=== PATIENT | male | born 2005 | race African-American/Black ===

== ENCOUNTER → 2025-04-07 | Outpatient (CLI) | payer BC ==
[2025-04-07 12:04] LABS: BASOPHILS % 0.6 % (0.0-2.0); DIFFERENTIAL COMMENT 0; EOSINOPHILS % 2.5 % (0.0-5.0); HEMATOCRIT. 43.3 % (42.0-52.0); HEMOGLOBIN. 14.7 g/dL (14.0-18.0); LYMPHOCYTES % 38.2 % (20.0-50.0); MEAN CORPUSCULAR HGB CONC 33.9 g/dL (31.0-37.0); MEAN CORPUSCULAR VOLUME 88.3 fL (80.0-94.0); MEAN PLATELET VOLUME 9.7 fl (7.4-10.4); NEUTROPHILS % 52.7 % (40.0-76.0); PLATELET 172 x1000/uL (130-400); RED BLOOD CELL COUNT 4.91 mill/uL (4.7-6.1); RED CELL DISTRIBUTION WIDTH 12.2 % (11.6-14.6); WHITE BLOOD COUNT 4.3 x1000/uL (4.5-11.0)
[2025-04-07 12:44] LABS: CHLORIDE 105 mEq/L (98-107); POTASSIUM 3.7 mEq/L (3.5-5.1); SODIUM 140 mEq/L (136-145)
[2025-04-07 12:45] LABS: CALCIUM 9.1 mg/dL (8.7-10.4); CARBON DIOXIDE 27 mEq/L (21-32)
[2025-04-07 12:50] LABS: CREATININE 0.9 mg/dL (0.6-1.3); GLUCOSE 89 mg/dL (70-105); TRIGLYCERIDE 69 mg/dL (0-150); UREA NITROGEN BLOOD 13 mg/dL (9-23)
[2025-04-07 12:51] LABS: LDL CHOLESTEROL 117 mg/dL (5-100)
[2025-04-07 12:52] LABS: ALANINE AMINOTRANSFERASE 10 IU/L (10-49); ALBUMIN 4.7 g/dL (3.2-4.8); ASPARTATE AMINOTRANSFERASE 24 IU/L (<34); BILIRUBIN TOTAL 1.5 mg/dL (0.1-1.0); CHOLESTEROL 175 mg/dL (<200); HDL CHOLESTEROL 46 mg/dL (>55)
[2025-04-07 12:53] LABS: PROTEIN TOTAL 7.8 g/dL (6.0-8.3)
[2025-04-07 12:54] LABS: THYROID STIMULATING HORMONE 1.23 uIU/mL (0.55-4.78)
[2025-04-07 15:24] LABS: VITAMIN B12 SERUM 378 pg/mL (211-911)
[2025-04-08 09:07] LABS: HIV SCREEN 4G Non Reactive (Non Reactive); VITAMIN D 25-OH 6.7 ng/mL (30.0-100.0)
[2025-04-09 15:11] LABS: HTLV Negative (Negative)
== END | disposition home or self-care (01) ==
LOC: LAB 10:38
PROVIDERS: ATTEND Family Medicine Adult Medicine
DX: Z11.3 Encounter for screening for infections with a predominantly sexual mode of transmission (principal); Z00.01 Encounter for general adult medical examination with abnormal findings
CPT/HCPCS: 36415; 71046; 80053; 80061; 82306; 82607; 83036; 84439; 84443; 85025; 86790; 87389